=== PATIENT | male | born 1985 | race Caucasian/White ===

== ENCOUNTER 2019-08-22 13:48 | Outpatient (CLI) | payer OTHER, SELFPAY | END 2019-08-22 13:49 | disposition home or self-care (01) | LOC: WOUND 13:49 | PROVIDERS: Family Provider Family Medicine; Visit Provider Nurse Practitioner Family | DX: S41.112A Laceration without foreign body of left upper arm, initial encounter (principal); S51.812A Laceration without foreign body of left forearm, initial encounter; X58.XXXA Exposure to other specified factors, initial encounter | CPT/HCPCS: 11042; 11045; G0463 ==

== ENCOUNTER 2019-08-30 14:13 | Outpatient (CLI) | payer OTHER, SELFPAY | END 2019-08-30 14:14 | disposition home or self-care (01) | LOC: WOUND 14:14 | PROVIDERS: Family Provider Family Medicine; Visit Provider Surgery | DX: S51.802A Unspecified open wound of left forearm, initial encounter (principal); X58.XXXA Exposure to other specified factors, initial encounter | CPT/HCPCS: 11042; 11045 ==

== ENCOUNTER 2019-09-06 14:52 | Outpatient (CLI) | payer OTHER, SELFPAY | END 2019-09-06 14:53 | disposition home or self-care (01) | LOC: WOUND 14:57 | PROVIDERS: Family Provider Family Medicine; Visit Provider Thoracic Surgery (Cardiothoracic Vascular Surgery) | DX: T81.89XA Other complications of procedures, not elsewhere classified, initial encounter (principal) | CPT/HCPCS: 11042; 11045 ==

== ENCOUNTER 2019-09-13 14:52 | Outpatient (CLI) | payer SELFPAY | END 2019-09-13 14:53 | disposition home or self-care (01) | LOC: WOUND 14:55 | PROVIDERS: Family Provider Family Medicine; Visit Provider Thoracic Surgery (Cardiothoracic Vascular Surgery) | DX: S51.802A Unspecified open wound of left forearm, initial encounter (principal); S41.102A Unspecified open wound of left upper arm, initial encounter; X58.XXXA Exposure to other specified factors, initial encounter | CPT/HCPCS: 99212 ==

== ENCOUNTER 2020-07-06 17:28 | Emergency (ER) | payer SELFPAY ==
--- NOTE | 2020-07-06 17:38 | W.ED.GENADLT ---
HPI - General Adult General: Chief complaint: General Medical Stated complaint: HIGH BP Time Seen by Provider: 07/06/20 17:30 Source: patient Mode of arrival: EMS Limitations: no limitations History of Present Illness: HPI narrative: Patient is a 35-year-old female who presents to ED today via EMS for complaints of hypertension. EMS states that patient works at [employer] and began noticing he felt shaky and complained of a headache therefore blood pressure was taken. He states blood pressure was 200s/130s. Patient tells me he does have a history of hypertension. He states blood pressure normally runs in the 150s/80s. He treats with 100 mg metoprolol daily. He states he has not seen a primary care provider in over a year. He states occasionally he will get these severe spikes and states he treats with an extra metoprolol tablet. Patient upon arrival feels slightly better. He does still feel shaky. Blood pressure during my initial assessment is 160s/100s. Onset (ago): hour(s) Relieving factors: medication Exacerbating factors: none Associated symptoms: Reports no associated symptoms and headache(s); Deny chest pain, confusion, dyspnea, malaise, nausea, rash, palpitations, syncope or vomiting Treatments prior to arrival: none Review of Systems Const: Denies: fever(s), chills, body aches, fatigue or malaise Eyes: Denies: change in vision, blurry vision, photophobia, floaters or seeing flashes Card: Denies: chest pain, palpitations, irregular heart rhythm, edema, swelling of feet/ankles, lightheadedness, syncope, pre-syncope, dyspnea on exertion, orthopnea, leg pain with exertion or acrocyanosis Resp: Denies: dyspnea GI: Denies: nausea or vomiting Musc: Denies: neck pain or back pain Skin/Breast: Denies: rash Neuro: Reports: headache(s); Denies: numbness in extremities, weakness in extremities, sensory changes, dizziness, confusion or Slurred speech present Physical Exam Const: COMMON NORMALS: no acute distress, patient oriented x3, no limitations and alert GENERAL APPEARANCE: cooperative NUTRITIONAL APPEARANCE: overweight ORIENTATION/CONSCIOUSNESS: Yes awake, Yes oriented to person, Yes oriented to place and Yes oriented to time HENMT: COMMON NORMALS: normocephalic and atraumatic HEAD & SCALP: normocephalic and atraumatic Chest: COMMONS NORMALS: normal inspection of the chest and normal palpation of entire chest wall Resp: COMMON NORMALS: normal respiratory effort and clear to auscultation bilaterally AUSCULTATION: clear to auscultation bilaterally Cardio: COMMON NORMALS: regular rate and regular rhythm RATE: regular rate RHYTHM: regular rhythm GI: COMMON NORMALS: Normal to inspection, nondistended, normoactive bowel sounds present, Soft to palpation, non-tender, No hepatosplenomegaly present and no masses PALPATION: Yes Soft to palpation and Yes No hepatosplenomegaly present Extremity: COMMON NORMALS: capillary refill normal, no clubbing, cyanosis or edema, no calf tenderness and no pedal edema Neuro: LENARD COMA SCALE: document GCS findings [place] coma scale eye opening: Spontaneous [place] coma scale verbal response: Orientated [place] coma scale motor response: Obey commands [place] coma scale total score: 15 COMMON NORMALS: patient oriented x3, CN's II-XII intact bilaterally, moves all extremities, no focal motor deficits and no sensory deficits noted SENSORIUM/ORIENTATION: Yes alert, Yes oriented to person, Yes oriented to place and Yes oriented to time Skin: COMMON NORMALS: no rashes or lesions noted GENERAL SKIN EXAM: no rashes or lesions noted Course Vital Signs: Vital signs: Vital Signs Temperature 97.9 F 07/06/20 17:40 Pulse Rate 76 07/06/20 19:32 Respiratory Rate 18 07/06/20 18:28 Blood Pressure 132/78 07/06/20 19:32 Pulse Oximetry 98 07/06/20 19:32 MDM - General Adult MDM Narrative: Medical decision making narrative: Patient is feeling much better. His headache is completely resolved. His blood pressure is improved. He tells me he takes 100 mg metoprolol every morning. He states he often gets spikes but states they are mainly in the evenings therefore will place patient on 25 mg metoprolol he can take in the evenings in addition to his morning dose to hopefully prevent these spikes. 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 These were reviewed with Dr. Moss. When I went in to speak to patient he tells me he does have a history of this and has seen Dr. Garcia/cardiology for this. He tells me he has never had issues with chest pain, palpitations, pre-syncopal/syncopal symptoms. He states it has been several years since he followed up with cardiology therefore we will have case management set him up for another appointment. I want him to also follow up with PCP in regards to his HTN. Lab Data: Labs: Lab Results 07/06/20 07/06/20 07/06/20 Range/Units 19:01 19:01 19:01 WBC 6.6 (4.0-10.0) 10^3/ uL RBC 4.86 (4.1-5.3) 10^6/u L Hgb 15.3 (11.7-16.6) g/dL Hct 45.8 (42.0-52.0) % MCV 94.2 H (80-94) fL MCH 31.5 (28.0-34.0) pg MCHC 33.4 (30.0-36.0) g/dL RDW 13.5 (12.1-15.1) % Plt Count 198 (130-400) 10^3/c mm MPV 9.5 (7.4-10.4) fL Neut % (Auto) 73.8 % Lymph % (Auto) 19.4 % [place] % (Auto) 5.5 % Eos % (Auto) 0.2 % Baso % (Auto) 0.9 % Neut # (Auto) 4.87 (1.8-7.7) 10^3/u L Lymph # (Auto) 1.3 (0.8-4.8) 10^3/u L [place] # (Auto) 0.4 (0.2-0.9) 10^3/u L Eos # (Auto) 0.0 (0.0-0.8) 10^3/u L Baso # (Auto) 0.1 (0.0-0.1) 10^3/u L Nucleated RBC % (a uto) 0 % Nucleated RBCs # 0.0 /100WBC Sodium 139 (136-145) mmol/L Potassium 4.5 (3.5-5.1) mmol/L Chloride 98 (98-107) mmol/L Carbon Dioxide 29 (22-29) mmol/L Anion Gap 16.5 (5-19) BUN 10 (6-20) mg/dL Creatinine 0.6 L (0.7-1.2) mg/dL GFR Calculation 151.6 H (90-130) mL/min Glucose 94 (65-115) mg/dL Calculated Osmolal ity 287 (285-295) mOsm/k g Calcium 9.9 (8.5-10.5) mg/dL Total Bilirubin 0.6 (0.15-1.2) mg/dL AST 143 H (0-40) U/L ALT 82 H (0-41) U/L Alkaline Phosphata se 121 (40-130) IU/L Troponin T Baselin e 6 (0-15) ng/L Total Protein 7.9 (6.6-8.7) g/dL Albumin 4.7 (3.5-5.2) g/dL Globulin 3.2 (1.3-4.6) g/dL Imaging Data^: CXR: Radiologist's impression: [address] [id number] ReportSigned Patient: Marcel Holt #: [id number]: 1985Acct#:[id number]/Sex: 35 / MADM Date: 07/06/20[facility]Attending Dr: Ordering Provider/Ordering MD: Savanna Bauman Date of Service: 07/06/20 Procedure(s): XR chest 1V portable [id number] Accession Number(s): [id number] Report Number: [id number] PROCEDURE INFORMATION: Exam: XR Chest Exam date and time: 07/06/2020 5:45 PM Age: 35 years old Clinical indication: Patient HX: Elevated blood pressure while at work; Headache; Additional info: Hypertension TECHNIQUE: Imaging protocol: XR of the chest. Views: 1 view. COMPARISON: No relevant prior studies available. FINDINGS: The lungs are clear of infiltrate. There are no pleural effusions or pneumothorax. The heart size and pulmonary vascularity are normal. XR/XR chest 1V portable 60508 IMPRESSION: No active disease. Dictated By:Dewey Corea MDSigned By:Dewey Corea MDSigned Date/Time:07/06/20 1840DD/ 1838 EKG Data^: EKG 1: EKG interpretation date: 07/06/20 EKG interpretation time: 18:24 Interpretation: Sinus rhythm with short MO interval Rate 73 Possible ventricular pre-excitation/WPW Lots of artifact present Reviewed with Dr. Moss Will obtain repeat EKG to see if we can get a clearer picture Computer generated interpretation: Chest X-Ray 07/06/20 17:39 IMPRESSION: No active disease. EKG 2: EKG interpretation date: 07/06/20 EKG interpretation time: 19:18 Interpretation: Sinus rhythm with short MO interval Rate 78 Findings concerning for WPW Also reviewed with Dr. Moss Computer generated interpretation: Chest X-Ray 07/06/20 17:39 IMPRESSION: No active disease. Discharge Plan Discharge Patient Disposition: Home Clinical Impression: Hypertension Qualifiers: Hypertension type: essential hypertension Qualified Code(s): I10 - Essential (primary) hypertension Condition: Stable Prescriptions: New metoprolol tartrate 25 mg tablet 25 mg PO DAILY Qty: 20 RF: 0 No Action Nexium 40 mg Capsule,Delayed Release(Dr/Ec) 40 mg PO DAILY RF: 0 multivitamin 1 tab PO DAILY RF: 0 Discharge Orders: Discharge ED (Routine); Ordered 07/06/20 Ordered By: Savanna Bauman Referrals: Jose Armando Gabriel, [Primary Care Provider] - Activity Restrictions/Additional Instructions: As we discussed please contact Dr. Bennett's office on Thursday to schedule a follow-up visit so he may further address your blood pressure. As discussed case management should contact you in regards to your cardiology appointment. Return to the emergency department for chest pain, shortness of breath, difficulty breathing, palpitations, passing out episodes, or any other concerns you may have. I have written you for a low-dose of metoprolol you can take in the evening along with your normal morning dose to hopefully help prevent spikes. Coding Level of Care Code ED Pearl Glue Operator for Chg Fwd Exam Comprehensive
--- NOTE | 2020-07-06 17:39 | ECG_ITS ---
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 Measurements Intervals [place] Rate: 73 P: 71 SC: 116 QRS: 45 QRSD: 128 T: 40 QT: 396 QTc: 438 Interpretive Statements SINUS RHYTHM WITH SHORT SC INTERVAL Possible VENTRICULAR PREEXCITATION / WPW Compared to ECG 04/08/2018 15:33:14 No significant changes Electronically Signed On 07-06-2020 21:47:45 CDT by Messi Case M.D. [id number]
[2020-07-06 17:40] VITALS: BP 166/106; PULSE 73; RESP 16; TEMP 36.6; O2SAT 96; BMI 36.6
[2020-07-06] MEDS: hyDRALAzine 25 mg Tablet PO (18:21)
[2020-07-06 18:28] VITALS: BP 166/106; PULSE 73; RESP 18; O2SAT 98
[2020-07-06] MEDS: LORazepam 2 mg/mL INJ 1 mL 0.5 MG IVP (18:44)
[2020-07-06 19:07] LABS: Basophils # 0.1 10^3/uL (0.0-0.1); Basophils % 0.9 %; Eosinophils % 0.2 %; Hematocrit 45.8 % (42.0-52.0); Hemoglobin 15.3 g/dL (11.7-16.6); Lymphocytes # 1.3 10^3/uL (0.8-4.8); Lymphocytes % 19.4 %; Mean Corpuscular HGB Conc 33.4 g/dL (30.0-36.0); Mean Corpuscular Hemoglobin 31.5 pg (28.0-34.0); Mean Corpuscular Volume 94.2 fL (80-94); Mean Platelet Volume 9.5 fL (7.4-10.4); Monocytes # 0.4 10^3/uL (0.2-0.9); Monocytes % 5.5 %; Neutrophils # 4.87 10^3/uL (1.8-7.7); Neutrophils % 73.8 %; Nucleated Red Blood Cells % 0 %; Platelet Count 198 10^3/cmm (130-400); Red Blood Count 4.86 10^6/uL (4.1-5.3); Red Cell Distribution Width 13.5 % (12.1-15.1); White Blood Count 6.6 10^3/uL (4.0-10.0)
[2020-07-06 19:25] LABS: Alanine Aminotransferase 82 U/L (0-41); Albumin Level 4.7 g/dL (3.5-5.2); Alkaline Phosphatase 121 IU/L (40-130); Aspartate Amino Transferase 143 U/L (0-40); Blood Urea Nitrogen 10 mg/dL (6-20); Calcium 9.9 mg/dL (8.5-10.5); Carbon Dioxide 29 mmol/L (22-29); Chloride 98 mmol/L (98-107); Globulin 3.2 g/dL (1.3-4.6); Glomerular Filtration Rate 151.6 mL/min (90-130); Glucose 94 mg/dL (65-115); Osmolality Calculated 287 mOsm/kg (285-295); Sodium 139 mmol/L (136-145); Total Bilirubin 0.6 mg/dL (0.15-1.2); Total Protein 7.9 g/dL (6.6-8.7)
[2020-07-06 19:27] LABS: Troponin(5th) Baseline 6 ng/L (0-15)
[2020-07-06 19:32] VITALS: BP 132/78; PULSE 76; O2SAT 98
[2020-07-06 19:34] LABS: Anion Gap 16.5 (5-19); Potassium 4.5 mmol/L (3.5-5.1)
--- NOTE | 2020-07-06 19:39 | ECG_ITS ---
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 Measurements Intervals [place] Rate: 78 P: 50 AK: 119 QRS: 72 QRSD: 126 T: 59 QT: 387 QTc: 441 Interpretive Statements SINUS RHYTHM WITH SHORT [place] INTERVAL POSSIBLE RIGHT VENTRICULAR HYPERTROPHY [SOME/ALL OF: PROMINENT R IN V1, LATE TRANSITION, RAD, THERON, SSS] Compared to ECG 07/06/2020 18:24:33 Ventricular preexcitation no longer present Electronically Signed On 07-06-2020 21:58:41 CDT by Messi Case M.D. [id number]
--- NOTE | 2020-07-09 10:57 | DCPLANNER ---
Addendum entered by Margarita Gutierres 07/09/20 11:09: Patients mother called case liner back, case liner gave her patients appointment information. Original Note: government contracts manager had message to schedule a follow up appointment for patient with [facility]. government contracts manager called [facility], spoke with Angi, gave clinic patients information. A follow up appointment was scheduled for Thursday, July 17, 2020 at 11:[address] Winters. government contracts manager called [phone], unable to speak with patient, and unable to leave a voicemail due to voicemail box being full. government contracts manager called phone [phone], left a voicemail for patient to return cyanide case hardener phone call. government contracts manager called [phone], this number does not have a voicemail box set up. government contracts manager has not been able to speak with patient to give patient appointment information. government contracts manager mailed patient a letter with appointment information.
--- NOTE | 2020-07-20 13:51 | DCPLANNER ---
Patient had a follow up appointment scheduled for 07.16.20 with [facility] - patient did not attend appointment.
== END 2020-07-06 20:18 | disposition home or self-care (01) ==
PROVIDERS: Emergency Provider Physician Assistant; PCP Family Medicine
DX: I10 Essential (primary) hypertension (principal)
CPT/HCPCS: 71045; 80053; 84484; 85025; 93005; 96374; 99284; J2060

== ENCOUNTER → 2022-07-08 10:27 | Outpatient (BNVA) | payer OTHER, SELFPAY | PROVIDERS: PCP Family Medicine; Visit Provider Family Medicine | DX: I10 Essential (primary) hypertension (principal) | CPT/HCPCS: 80053; 80061; 84443; 85025 ==

== ENCOUNTER → 2022-09-09 10:07 | Outpatient (BNVA) | payer OTHER, SELFPAY | PROVIDERS: PCP Family Medicine; Visit Provider Family Medicine | DX: E87.1 Hypo-osmolality and hyponatremia (principal) | CPT/HCPCS: 80048 ==

== ENCOUNTER 2024-09-08 09:00 | Emergency (ER) | payer OTHER, SELFPAY ==
[2024-09-08] VITALS (7 sets, daily range): BP systolic 129–141; BP diastolic 77–93; PULSE 103–114; RESP 25; TEMP 38.2–39.2; O2SAT 95–99; BMI 35.9
--- NOTE | 2024-09-08 09:08 | XR_ITS ---
WS: [id number] XR hand RT min 3V* 12001 REASON FOR EXAM: Pain swelling FINDINGS: Diffuse swelling of the soft tissues of the right hand. No fracture or focal bone lesion. No periosteal reaction. Joint spaces of the hand are intact and well preserved. No radiopaque soft tissue foreign body. XR/XR hand RT min 3V* 32205 IMPRESSION: Diffuse swelling of the hand without bone or joint abnormality.
[2024-09-08 09:40] LABS: Hematocrit 39.2 % (37-53); Hemoglobin 13.40 g/dL (11.27-16.99); Mean Corpuscular HGB Conc 34.2 g/dL (30-55); Mean Corpuscular Hemoglobin 30.1 pg (27-33); Mean Corpuscular Volume 88.1 fl (82-101); Nucleated Red Blood Cells % 0 %; Platelet Count 233 10^3/cmm (157-399); Red Blood Count 4.45 10^6/uL (3.85-5.65); White Blood Count 23.61 10^3/uL (3.29-11.43)
--- NOTE | 2024-09-08 09:52 | CT_ITS ---
WS: [id number] CTA RIGHT upper extremity TECHNIQUE: contrast enhanced CTA of the RIGHT upper extremity with coronal and sagittal reformatted images and additional MIP Images. CLINICAL INFORMATION: Cellulitis hand COMPARISON: None. DLP: 361.[address] scans at [facility] use at least one of these dose optimization techniques: automated exposure control; mA and/or kV adjustment per patient size (includes targeted exams where dose is matched to clinical indication); or iterative reconstruction. FINDINGS: Marked diffuse superficial and deep cellulitis involving the hand worse involving the dorsal subcutaneous soft tissues. Induration and diffuse edema extends into the intertarsal soft tissues and along the extensor retinaculum. Diffuse extension along the phalanges extensor tendon sheaths. RIGHT subclavian axillary and brachial arteries are patent. Radial and ulnar arteries are patent. No evidence of drainable abscess or drainable fluid collection. No evidence of [place]omyelitis CT/[place] [id number] IMPRESSION: 1. Diffuse extensive cellulitis involving the distal forearm extending into th e wrist and hand worse involving the dorsal subcutaneous soft tissues. Associat ed dorsal intramuscular edema. 2. Diffuse edema and induration extends into the extensor retinaculum and jerrica g the extensor kristy tendon sheaths. 3. No drainable abscess or drainable fluid collection. 4. RIGHT upper extremity arteries are patent. 5. A few reactive axillary lymph nodes.
--- NOTE | 2024-09-08 09:53 | W.ED.EXTPRO ---
HPI - Extremity Problem General: Chief complaint: Extremity Problem,Nontraumatic Stated complaint: Swelling in left hand Time Seen by Provider: 09/08/24 09:07 History of Present Illness: 39-year-old male presents emergency room with small pustules on the dorsum of his right hand that began yesterday. He cannot recall any particular trauma he does have cats at home states he has not been around them he is not been scratched or bitten. The bumps became more inflamed they appear to be purulent or very superficial he now has significant infiltration edema of the forearm extending into his mid forearm and along the ulnar ridge. Also complains of pain into the axilla fever at home up to 102 5. He denies any recent trauma or injury to the hand. Associated symptoms: Deny chest pain, fever(s) or rash Related Data Home Medications ?Medication ?Instructions ?Recorded ?Confirmed amlodipine 5 mg tablet 5 mg PO DAILY 09/08/24 09/08/24 losartan 50 mg tablet 50 mg PO DAILY 09/08/24 09/08/24 Allergies Allergy/AdvReac Type Severity Reaction Status Date / Time No Known Allergies Allergy Verified 05/25/23 08:07 Review of Systems Const: Denies: fever(s) or chills Card: Denies: chest pain Resp: Denies: dyspnea GI: Denies: abdominal pain : Denies: dysuria, urinary frequency or urinary urgency Musc: Denies: neck pain or back pain Skin/Breast: Denies: rash Physical Exam Const: GENERAL APPEARANCE: cooperative ORIENTATION/CONSCIOUSNESS: Yes awake, Yes oriented to person, Yes oriented to place and Yes oriented to time HENMT: COMMON NORMALS: normocephalic, atraumatic and hearing grossly normal bilaterally HEAD & SCALP: normocephalic and atraumatic Resp: COMMON NORMALS: normal respiratory effort, No retractions, No use of accessory muscles and clear to auscultation bilaterally AUSCULTATION: clear to auscultation bilaterally Cardio: COMMON NORMALS: regular rate, regular rhythm and No murmurs present (Cardio) RATE: regular rate RHYTHM: regular rhythm GI: COMMON NORMALS: Soft to palpation and No hepatosplenomegaly present AUSCULTATION: Yes normoactive bowel sounds PALPATION: Yes Soft to palpation, No Tenderness to palpation present (GI), No Guarding due to palpation present (GI) and Yes No hepatosplenomegaly present Extremity: OTHER: Left hand markedly swollen edematous tender to touch she has small vesicles are noted in dermatomal like pattern they are pustular in appearance. There is no signs of a bite or puncture wound. Some areas are near the knuckles there are on the dorsum of the hand none in the antecubital fossa. There is swelling to the midshaft of the radius and ulna. Patient has pain in the hand with passive range of motion but not pain in the forearm. Neurovascularly intact. Tender axillary and epitrochlear lymph nodes noted on the right arm. Neuro: SENSORIUM/ORIENTATION: Yes oriented to person, Yes oriented to place and Yes oriented to time Skin: COMMON NORMALS: no rashes or lesions noted GENERAL SKIN EXAM: no rashes or lesions noted Course Vital Signs: Vital signs: Vital Signs Temperature 100.7 F H 09/08/24 11:35 Pulse Rate 107 H 09/08/24 14:42 Respiratory Rate 25 H 09/08/24 09:15 Blood Pressure 129/77 09/08/24 14:42 Pulse Oximetry 96 09/08/24 14:42 Oxygen Delivery Me thod Room Air 09/08/24 14:42 MDM - Extremity (Nontraumatic) Medical Decision Making Patient has cellulitis of the hand extending to the forearm he does have some tender epitrochlear and axillary lymph nodes. CTA of the arm shows signs of cellulitis but no evidence of abscess at this time. Cultures been done initiated linezolid lactic acid normal range. Patient has received fluids. He has also received pain medications. Arrangements made for admission Dr. Jacobs seen the patient is requesting transfer. Contacted Dr. Castrejon she does not perform any hand procedures and states she would not be able to do a release for compartment syndrome which is Dr. Jacobs's concern. Transfer ER to ER for hand surgery. Medical Records I reviewed the patient's medical records. Lab Data I reviewed the patient's lab results. 09/08/24 09:15 09/08/24 09:15 Radiology Impressions Hand X-Ray 09/08/24 09:08 IMPRESSION: Diffuse swelling of the hand without bone or joint abnormality. Upper Extremity CTA 09/08/24 09:52 IMPRESSION: 1. Diffuse extensive cellulitis involving the distal forearm extending into the wrist and hand worse involving the dorsal subcutaneous soft tissues. Associated dorsal intramuscular edema. 2. Diffuse edema and induration extends into the extensor retinaculum and along the extensor kristy tendon sheaths. 3. No drainable abscess or drainable fluid collection. 4. RIGHT upper extremity arteries are patent. 5. A few reactive axillary lymph nodes. Laboratory Results WBC 23.61 10^3/uL (3.29-11.43) H 09/08/24 09:15 RBC 4.45 10^6/uL (3.85-5.65) 09/08/24 09:15 Hgb 13.40 g/dL (11.27-16.99) 09/08/24 09:15 Hct 39.2 % (37-53) 09/08/24 09:15 MCV 88.1 fl (82-101) 09/08/24 09:15 MCH 30.1 pg (27-33) 09/08/24 09:15 MCHC 34.2 g/dL (30-55) 09/08/24 09:15 RDW 12.3 % (12.1-15.1) 09/08/24 09:15 Plt Count 233 10^3/cmm (157-399) 09/08/24 09:15 MPV 9.7 fL (7.4-10.4) 09/08/24 09:15 Neut % (Auto) 91.6 % 09/08/24 09:15 Lymph % (Auto) 3.3 % 09/08/24 09:15 [place] % (Auto) 3.9 % 09/08/24 09:15 Eos % (Auto) 0.0 % 09/08/24 09:15 Baso % (Auto) 0.3 % 09/08/24 09:15 Neut # (Auto) 21.64 10^3/uL (1.8-7.7) H 09/08/24 09:15 Lymph # (Auto) 0.8 10^3/uL (0.8-4.8) 09/08/24 09:15 [place] # (Auto) 0.9 10^3/uL (0.2-0.9) 09/08/24 09:15 Eos # (Auto) 0.0 10^3/uL (0.0-0.8) 09/08/24 09:15 Baso # (Auto) 0.1 10^3/uL (0.0-0.1) 09/08/24 09:15 Nucleated RBC % (auto) 0 % 09/08/24 09:15 Nucleated RBCs # 0.0 /100WBC 09/08/24 09:15 Sodium 134 mmol/L (136-145) L 09/08/24 09:15 Potassium 4.1 mmol/L (3.5-5.1) 09/08/24 09:15 Chloride 99 mmol/L (98-107) 09/08/24 09:15 Carbon Dioxide 21 mmol/L (22-29) L 09/08/24 09:15 Anion Gap 18.1 (5-19) 09/08/24 09:15 BUN 14 mg/dL (6-20) 09/08/24 09:15 Creatinine 0.7 mg/dL (0.7-1.2) 09/08/24 09:15 GFR Calculation 124.3 mL/min (90-130) 09/08/24 09:15 Glucose 122 mg/dL (65-115) H 09/08/24 09:15 Calculated Osmolality 280 mOsm/kg (285-295) L 09/08/24 09:15 Lactic Acid 1.8 mmol/L (0.5-2.2) 09/08/24 09:15 Calcium 9.5 mg/dL (8.5-10.5) 09/08/24 09:15 Total Bilirubin 0.6 mg/dL (0.15-1.2) 09/08/24 09:15 AST 20 U/L (0-40) 09/08/24 09:15 ALT 24 U/L (0-41) 09/08/24 09:15 Alkaline Phosphatase 107 U/L (40-130) 09/08/24 09:15 Total Protein 7.7 g/dL (6.6-8.7) 09/08/24 09:15 Albumin 4.3 g/dL (3.5-5.2) 09/08/24 09:15 Globulin 3.4 g/dL (1.3-4.6) 09/08/24 09:15 Urine Color Yellow (Yellow) 09/08/24 09:15 Urine Appearance Clear (CLEAR) 09/08/24 09:15 Urine pH 5.5 (5-7) 09/08/24 09:15 Ur Specific [place] 1.023 (1.005-1.030) 09/08/24 09:15 Urine Protein Negative (Negative) 09/08/24 09:15 Urine Glucose (UA) Negative (Normal) 09/08/24 09:15 Urine Ketones Negative (Negative) 09/08/24 09:15 Urine Blood Negative (Negative) 09/08/24 09:15 Urine Nitrate Negative (Negative) 09/08/24 09:15 Urine Bilirubin Negative (Negative) 09/08/24 09:15 Urine Urobilinogen 0.2 mg/dL (Negative) 09/08/24 09:15 Ur Leukocyte Esterase Negative (Negative) 09/08/24 09:15 Urine RBC 0-2 /hpf (0-2) 09/08/24 09:15 Urine WBC 0-5 /hpf (0-5) 09/08/24 09:15 Ur Squamous Epith Cells 0-5 /hpf (0-5) 09/08/24 09:15 Amorphous Sediment Not Reportable 09/08/24 09:15 Urine Bacteria None seen /hpf (NONE) 09/08/24 09:15 Hyaline Casts 0-4 /lpf H 09/08/24 09:15 Urine Opiates Screen Negative ng/mL (Negative) 09/08/24 12:06 Ur Barbiturates Screen Negative ng/mL (Negative) 09/08/24 12:06 Ur Phencyclidine Scrn Negative ng/mL (Negative) 09/08/24 12:06 Ur Amphetamines Screen Negative ng/mL (Negative) 09/08/24 12:06 U Benzodiazepines Scrn Negative ng/mL (Negative) 09/08/24 12:06 Urine Cocaine Screen Negative ng/mL (Negative) 09/08/24 12:06 U Marijuana (THC) Screen Positive ng/mL (Negative) H 09/08/24 12:06 All radiology interpretation(s) finalized by discharge Discharge Plan Discharge Patient Disposition: Xfer Short-Term Hosp Clinical Impression: Cellulitis of hand, right Condition: Stable Coding Level of Care Code ED Wing Scorer for Wu Miranda
[2024-09-08 09:59] LABS: Alanine Aminotransferase 24 U/L (0-41); Albumin Level 4.3 g/dL (3.5-5.2); Alkaline Phosphatase 107 U/L (40-130); Anion Gap 18.1 (5-19); Aspartate Amino Transferase 20 U/L (0-40); Blood Urea Nitrogen 14 mg/dL (6-20); Calcium 9.5 mg/dL (8.5-10.5); Carbon Dioxide 21 mmol/L (22-29); Chloride 99 mmol/L (98-107); Creatinine Clr Calc Pharmacy 175.1341; Globulin 3.4 g/dL (1.3-4.6); Glucose 122 mg/dL (65-115); Glucose Urine UA Negative (Normal); Nitrate Urine Negative (Negative); Osmolality Calculated 280 mOsm/kg (285-295); Potassium 4.1 mmol/L (3.5-5.1); Sodium 134 mmol/L (136-145); Specific Gravity, Urine 1.023 (1.005-1.030); Total Protein 7.7 g/dL (6.6-8.7)
[2024-09-08 10:00] LABS: Lactic Sepsis W/Reflex 1.8 mmol/L (0.5-2.2)
[2024-09-08 10:04] LABS: Add Urine Microscopic? YES
--- NOTE | 2024-09-08 10:22 | PC.NURSE ---
[place]IENT [place] [address]5
[2024-09-08] MEDS: linezolid premix 600 MG/300 ML PREMIX 300 MG IV (10:28)
[2024-09-08] MEDS: iohexol 350 mg/mL 500 mL Btl (per mL) IV (10:29)
[2024-09-08 12:26] LABS: PCP Screen Urine Negative (Negative)
[2024-09-08] MEDS: ondansetron 2 mg/ML SDV 2 mL 4 MG IVP ×2 (12:43→14:35)
[2024-09-08] MEDS: morphine 4 mg/mL SDV 1 mL IVP ×3 (12:49→18:03)
--- NOTE | 2024-09-08 13:19 | P.HP_ITS ---
Providers/Chief Complaint 2 Admitting Physician: Kaiden Jacobs Primary Care Provider: Jose Armando Gabriel DO Chief Complaint: Swelling in right hand History of Present Illness Nathaniel Holt is a 39 year old male gentleman with a history of hypertension presenting with rapidly progressive swelling and blistering of the dorsal right hand that began two days ago. Initial lesions appeared on the ring finger as small papules that ruptured serous fluid, followed by diffuse hand and forearm swelling. He reports fever up to 102.5 ?F, pain with movement of the fingers, but denies nausea, vomiting, diarrhea, hematuria, dysuria, gastrointestinal bleeding, or rashes elsewhere. He notes no recent trauma, cat scratches/bites, gardening, or other obvious injury. In the ED he was febrile (100.7 ?F) and tachycardic (114 bpm). Labs showed WBC 23.6 K/?L, Na 134 mEq/L, bicarbonate 21 mEq/L, anion gap 18, glucose 122 mg/dL, lactate 1.8 mmol/L. Hand X-ray revealed soft-tissue swelling without bony abnormality. CT angiogram demonstrated extensive cellulitis of the distal forearm/wrist/hand without drainable abscess; arteries patent. He received IV fluids, linezolid, and symptomatic medications in the ED. The admitting clinician plans additional antimicrobials, elevation, and possible surgical consultation given concern for compartment syndrome. He denies drug allergies. Socially, he works as a customer counter representative, smokes/vapes lightly, drinks alcohol only occasionally, and uses marijuana intermittently. Review of Systems 2 Const: Reports: fever(s); Denies: chills, body aches or malaise ENMT: Denies: throat pain Card: Denies: chest pain, edema, pre-syncope or dyspnea on exertion Resp: Denies: dyspnea, productive cough, change in phlegm color or hemoptysis GI: Denies: abdominal pain, nausea, vomiting, diarrhea, constipation, hematochezia or melena : Denies: flank pain, difficulty urinating, urinary frequency or hematuria Musc: Reports: extremity pain and extremity swelling Skin/Breast: Reports: sores Neuro: Denies: headache(s) or confusion Medications/Allergies Home Medications ?Medication ?Instructions ?Recorded ?Confirmed ?Last Taken ?Type amlodipine 5 mg tablet 5 mg PO DAILY 07/09/0809/07/24 History losartan 50 mg tablet 50 mg PO DAILY 09/08/2408/2309/07/24 History Allergies Allergy/AdvReac Type Severity Reaction Status Date / Time No Known Allergies Allergy Verified 05/25/23 08:07 PFSH Acute 2 PFSH: Medical History Hypertension Social History (Updated 09/08/24 @ 16:41 by Kaiden Jacobs MD) Smoking and tobacco/nicotine status: current every day tobacco/nicotine user Quit status (tobacco/nicotine): considering quitting Alcohol intake: former Substance/Drug Use: current Substance/Drug use frequency: Special occassions/opportunity only Substance/Drug use type: Marijuana Current occupational status: employed Current occupation: At assisted Vitals/I&O/Wt Last Vital Signs Temp 100.7 F H 09/08/24 11:35 Pulse 114 H 09/08/24 12:25 Resp 25 H 09/08/24 09:15 BP 137/89 09/08/24 12:25 Pulse Ox 96 09/08/24 12:25 O2 Del Method Room Air 09/08/24 12:25 09/07/24 09/08/24 09/08/24 22:59 06:59 14:59 Intake Total 3701.94 / 3701.94 Balance 3701.94 / 3701.94 Weight last 48 hrs Weight 113.398 kg Physical Exam 2 Narrative: Accompanied by his mom Const: COMMON NORMALS: patient oriented x3 and alert GENERAL APPEARANCE: c ooperative ORIENTATION/CONSCIOUSNESS: Yes awake HENMT: COMMON NORMALS: oropharynx normal Neck/C-Spine: COMMON NORMALS: no JVD Resp: COMMON NORMALS: normal respiratory effort and clear to auscultation bilaterally AUSCULTATION: clear to auscultation bilaterally Cardio: COMMON NORMALS: no JVD, regular rhythm, S1 normal heart sound present, S2 normal heart sound present and No murmurs present (Cardio) RHYTHM: regular rhythm HEART SOUNDS: S1 normal heart sound present and S2 normal heart sound present GI: COMMON NORMALS: Normal to inspection, nondistended, normoactive bowel sounds present, Soft to palpation and non-tender PALPATION: Yes Soft to palpation Extremity: NARRATIVE EXTREMITY EXAM: Swelling of right hand and fingers extending up the dorsum of the hand and towards about mid forearm. Pain on passive range of motion of the fingers and wrist. OTHER: Cap refill is symmetrical. No cyanosis or mottling. Neuro: COMMON NORMALS: patient oriented x3 and moves all extremities S ENSORIUM/ORIENTATION: Yes alert Skin: NARRATIVE SKIN EXAM: Small ulcerated papules with minimal clear drainage over the knuckles of the right hand. Small reddish papule 5 mm, surrounding redness 5 mm with small central ulceration on the mid lateral right upper arm without any drainage. Quick SOFA Score: Respiratory Rate: 25 Blood Pressure: 129/77 Lenard Coma Scale: 15 qSOFA Score: 1 If qSOFA score 2 or greater, continue: Blood Pressure Mean: 94 Bilirubin (mg/dl): 0.6 Platelets (x10?/ml): 233 Creatinine (mg/dl): 0.7 Evaluation: Current stage of sepsis: sepsis Sepsis stage criteria used: [facility] Sep-1 and Sepsis-3 Focused Exam: Vital signs: Temp Pulse Resp BP Pulse Ox O2 Del Method 09/08/24 14:42 107 H 129/77 96 Room Air 09/08/24 12:25 114 H 137/89 96 Room Air 09/08/24 11:35 100.7 F H 09/08/24 09:15 102.5 F H 103 H 25 H 141/92 99 Room Air Respiratory exam: CTA bilaterally Capillary refill: < 3 Seconds Skin exam: no mottling Date exam was performed: 09/08/24 Time exam was performed: 16:56 2 Sepsis Screen No Definite Risk Today, 14:42 Respiratory Rate, (12 - 18) 25 breaths/min H Today, 09:15 Blood Pressure 129/77 mmHg Today, 14:42 Lenard Coma Scale Score 15 Today, 09:15 Quick SOFA Score 0 Today, 14:42 SOFA Score: 2 Lenard Coma Scale Score 15 Today, 09:15 Blood Pressure Mean 94 mmHg Today, 14:42 Total Bilirubin, (0.15-1.2) 0.6 mg/dL Today, 09:15 Platelet Count, (157-399) 233 10^3/cmm Today, 09:15 Creatinine, (0.7-1.2) 0.7 mg/dL Today, 09:15 Data 09/08/24 09:15 09/08/24 09:15 Micro: Microbiology 09/08/24 09:47 Blood Culture - Preliminary Blood SPECIMEN COLLECTED 09/08/24 09:15 Blood Culture - Preliminary Blood SPECIMEN COLLECTED A&P Assessment and plan 1. Cellulitis of hand, right: Right hand extensive severe cellulitis with concern for compartment syndrome : Acute, rapidly progressive swelling of right hand/forearm with blistering; imaging shows extensive cellulitis without abscess but significant edema. Provider worried about rising compartment pressure and potential vascular compromise. Blood cultures have been collected. Requesting wound culture, wound fungal culture as he does work as a customer counter representative. Requested A1c, noted mild glucose elevation, but A1c is 5.5. Without known injection substance use, questioning reports only occasional marijuana use, UDS appears to confirm that. Fungal culture also for assessment for possible sporotrichosis, although he does not garden, although does have cats. Requested Bartonella and tularemia studies. Reviewed vitals, CBC, CMP, UDS, and x-ray, right upper extremity CTA, ED provider note, discussed with ED provider. - Continue IV linezolid started in ED - Add IV piperacillin-tazobactam (Zosyn) for broader gram-negative/anaerobic coverage monitor for risk of cytopenia, kidney injury, C. difficile. - Consider empiric antifungal therapy (e.g., for possible sporotrichosis) - Was being admitted for close monitoring and strict elevation of the affected limb - Serial neurovascular exams to detect evolving compartment syndrome. With tenderness on passive range of motion of the fingers of the right hand and at the wrist, with significant swelling and noted deep tissue edema on CT, discussed with hand surgery in [place] with no hand surgeon available at our facility, discussed with patient and his mother, he is being transferred for further assessment by hand surgery with concern for possible compartment syndrome of the hand versus deeper abscess. - Consult hand surgery/orthopedics; if worsening or vascular compromise develops, arrange emergent transfer for possible fasciotomy Plan: Sepsis (suspected) : Meets SIRS criteria with fever 100.7 ?F, HR 114 bpm, WBC 23.6 K; lactate mildly elevated at 1.8 mmol/L. Infection source likely right-hand cellulitis. - IV crystalloid bolus given; continue maintenance fluids as needed to maintain perfusion - Blood cultures obtained; tailor antibiotics when results return - Trend lactate and basic metabolic panels - Frequent vital-sign and urine-output monitoring Hypertension : Known history; ED BP 137/89 mmHg. continue amlodipine, losartan. Tobacco use disorder : Patient smokes ~1.5 packs/week and vapes; has reduced from prior heavier use; interested in cessation. - Provided counseling on quitting; offered nicotine patch or lozenge during hospitalization PDMP PDMP Reviewed: Not Reviewed Attestations 2 Medical Necessity Statement*: Transfer arrangements underway for further assessment management of extensive, severe cellulitis affecting deep structures, possible compartment syndrome or deep tissue infection. Diagnoses Cellulitis of hand, right L03.113
[2024-09-08 14:43] LABS: Estmated Average Glucose 111; Hemoglobin A1C 5.5 % (4.0-6.0)
[2024-09-08] MEDS: piperacillin-tazobactam 3.375 GM in sodium chloride 0.9% (plus) 50 ML IV (14:43)
[2024-09-12 08:00] LABS: Bartonella DNA PCR Source WHOLE BLOOD; Bartonella Henselae DNA PCR NOT DETECTED; Bartonella Quintana DNA PCR NOT DETECTED
== END 2024-09-08 18:22 | disposition short-term general hospital (02) ==
LOC: ER 09:54 → ER IP 13:11
PROVIDERS: Internal Medicine; Emergency Provider Family Medicine; PCP Family Medicine
DX: L03.113 Cellulitis of right upper limb (principal); Z79.899 Other long term (current) drug therapy
CPT/HCPCS: 36415; 73130; 73206; 80053; 80306; 81001; 83036; 83605; 85025; 86160; 86668; 87040; 87385; 87801; 96365; 96366; 96375; 96376; 99285; 99291; 99292; J2020; J2270; J2405; J2543; J7030; J9999